=== PATIENT | male | born 1960 | race Caucasian/White ===

== ENCOUNTER 2025-01-21 01:45 | Emergency (ER) | payer BC ==
[~2025-01-21] VITALS: Ht 170.2 cm; Wt 84.1 kg
[2025-01-21] MEDS ORDERED: CYAN1000VL IM (09:33)
[2025-01-21] MEDS ORDERED: ROSU20TA86 PO (09:33)
[2025-01-21] MEDS ORDERED: ZOLO100T PO (09:33)
[2025-01-21] MEDS ORDERED: ALPR0.25 PO (09:33)
[2025-01-21] MEDS ORDERED: AMLO1TAB24 PO (09:33)
[2025-01-21] MEDS ORDERED: DUPI300P SQ (09:33)
[2025-01-21] MEDS ORDERED: LISI20TA37 PO (09:33)
[2025-01-21] MEDS ORDERED: HOME MED LIST COMPLETE! XX SCH (09:35)
[2025-01-21] MEDS: ROSUVASTATIN 10 MG TAB (CRESTOR) PO SCH (11:40)
[2025-01-21] MEDS: SERTRALINE HCL 50 MG TAB PO SCH (11:40)
[2025-01-21 11:41] VITALS: BP 133/80
[2025-01-21] MEDS: amLODIPine 5 MG TAB PO SCH (11:41)
[2025-01-21 11:48] VITALS: BP 133/80; TEMP 98.8; O2SAT 99
== END 2025-01-21 12:42 | disposition home or self-care (01) ==
LOC: M ED 01:45
DX: F32.A Depression, unspecified (principal); F12.10 Cannabis abuse, uncomplicated; F10.10 Alcohol abuse, uncomplicated; Z88.8 Allergy status to other drugs, medicaments and biological substances; Z79.899 Other long term (current) drug therapy